=== PATIENT | female | born 1945 | race Caucasian/White ===

== ENCOUNTER 2024-12-23 01:31 | Inpatient (IN) ==
[2024-12-23] MEDS: IPRATROPIUM/ALBUTEROL 3 ML AMPUL.NEB NEB ONE (01:37)
[2024-12-23] MEDS: MAGNESIUM SULFATE 2 GM/50 ML BAG IV ONE (01:47)
[2024-12-23] MEDS: methylPREDNISolone SOD SUCC 125 MG/2 ML VIAL IV ONE (01:47)
[2024-12-23 02:07] LABS: Basophils # (Auto) 0.07 K/mcL (0.00-0.30); Basophils % (Auto) 0.5 % (0.0-2.0); Eosinophils # (Auto) 0.66 K/mcL (0.00-0.70); Eosinophils % (Auto) 5.2 % (0.0-7.0); Hematocrit 43.4 % (34.1-44.9); Hemoglobin 14.3 g/dL (11.2-15.7); Lymphocytes # (Auto) 1.89 K/mcL (1.50-4.80); Lymphocytes % (Auto) 14.8 % (15.5-49.0); Mean Cell Volume 93.3 fL (80.0-100.0); Mean Corpuscular HGB Conc 32.9 g/dL (31.0-36.0); Mean Platelet Volume 9.6 fL (8.8-12.5); Monocytes % (Auto) 9.4 % (1.0-12.0); Neutrophils % (Auto) 69.9 % (38.0-78.0); Platelet Count 329 K/mcL (140-440); RBC 4.65 M/mcL (3.59-5.38); Red Cell Distribution Width 13.7 % (11.5-14.5); WBC 12.7 K/mcL (4.5-11.0)
[2024-12-23 02:33] LABS: Blood Urea Nitrogen 10 mg/dL (8-23); Carbon Dioxide 28 mmol/L (22-30); Chloride 103 mmol/L (96-108); Glomerular Filtration Rate 87; Glucose 116 mg/dL (70-105); Potassium 3.6 mmol/L (3.3-5.1); Sodium 144 mmol/L (133-145)
[2024-12-23] MEDS ORDERED: POTASSIUM CHLORIDE 20 MEQ TABLET PO PRN ×2 (08:49)
[2024-12-23] MEDS ORDERED: ONDANSETRON 4 MG/2 ML VIAL IV PRN (08:49)
[2024-12-23] MEDS ORDERED: METOCLOPRAMIDE 10 MG/2 ML VIAL IV PRN (08:49)
[2024-12-23] MEDS ORDERED: ACETAMINOPHEN 325 MG TABLET PO PRN (08:49)
[2024-12-23] MEDS ORDERED: POTASSIUM CHLORIDE 40 MEQ in DEXTROSE 5% IN WATER 500 ML IV PRN (08:49)
[2024-12-23] MEDS ORDERED: MAGNESIUM SULFATE 2 GM/50 ML BAG IV PRN (08:49)
[2024-12-23] MEDS ORDERED: POLYETHYLENE GLYCOL 3350 17 GM PACKET PO PRN (08:49)
[2024-12-23] MEDS ORDERED: SENNOSIDES 1 TABLET PO PRN (08:49)
[2024-12-23] MEDS: PREGABALIN 25 MG CAPSULE PO SCH (09:17)
[2024-12-23] MEDS: APIXABAN 5 MG TABLET PO SCH (09:17)
[2024-12-23] MEDS: METOPROLOL SUCCINATE 50 MG TAB.XL.24H PO SCH (09:17)
[2024-12-23] MEDS: BACLOFEN 10 MG TABLET PO SCH (09:17)
[2024-12-23] MEDS: DOCUSATE SODIUM 100 MG CAPSULE PO SCH (09:17)
[2024-12-23] MEDS: BUDESONIDE 0.5 MG/2 ML AMPUL.NEB NEB SCH (09:20)
[2024-12-23] MEDS: IPRATROPIUM/ALBUTEROL 3 ML AMPUL.NEB NEB PRN (09:20)
[2024-12-23] MEDS: IPRATROPIUM/ALBUTEROL 3 ML AMPUL.NEB NEB SCH (13:20)
[2024-12-23] MEDS: methylPREDNISolone SOD SUCC 125 MG/2 ML VIAL IV SCH (13:33)
[2024-12-23] MEDS: 0.9 % SODIUM CHLORIDE 10 ML SYRINGE IV SCH (13:34)
[2024-12-23] MEDS: OMEPRAZOLE 20 MG CAPSULE PO SCH (21:09)
[2024-12-23] MEDS: amLODIPine 5 MG TABLET PO SCH (21:09)
[2024-12-23] MEDS: ATORVASTATIN 40 MG TABLET PO SCH (21:09)
[2024-12-24 06:05] LABS: Basophils # (Auto) 0.01 K/mcL (0.00-0.30); Basophils % (Auto) 0.1 % (0.0-2.0); Eosinophils # (Auto) 0 K/mcL (0.00-0.70); Eosinophils % (Auto) 0 % (0.0-7.0); Hematocrit 38.3 % (34.1-44.9); Hemoglobin 12.6 g/dL (11.2-15.7); Lymphocytes # (Auto) 1.04 K/mcL (1.50-4.80); Lymphocytes % (Auto) 5.3 % (15.5-49.0); Mean Cell Volume 93.6 fL (80.0-100.0); Mean Corpuscular HGB Conc 32.9 g/dL (31.0-36.0); Mean Platelet Volume 9.6 fL (8.8-12.5); Monocytes # (Auto) 0.38 K/mcL (0.10-0.90); Monocytes % (Auto) 1.9 % (1.0-12.0); Neutrophils % (Auto) 92.3 % (38.0-78.0); Platelet Count 297 K/mcL (140-440); RBC 4.09 M/mcL (3.59-5.38); Red Cell Distribution Width 13.7 % (11.5-14.5); WBC 19.8 K/mcL (4.5-11.0)
[2024-12-24 06:18] LABS: ALT/SGPT 13 U/L (<40); AST/SGOT 15 U/L (<32); Albumin 3.9 gm/dL (3.2-5.2); Albumin/Globulin Ratio 1.6 (1.0-2.3); Alkaline Phosphatase 69 U/L (39-117); Bilirubin,Direct < 0.2 mg/dL (0-0.3); Bilirubin,Total < 0.2 mg/dL (0.1-1.0); Blood Urea Nitrogen 15 mg/dL (8-23); Calcium 9.7 mg/dL (8.6-10.4); Carbon Dioxide 25 mmol/L (22-30); Chloride 104 mmol/L (96-108); Globulin 2.4 gm/dL (2.2-3.7); Glomerular Filtration Rate 92; Glucose 163 mg/dL (70-105); Lactate Dehydrogenase 139 U/L (135-225); Phosphorous 2.6 mg/dL (2.5-4.5); Potassium 3.9 mmol/L (3.3-5.1); Sodium 139 mmol/L (133-145); Triglycerides 45 mg/dL (<150); Uric Acid 2.5 mg/dL (2.5-8.0)
[2024-12-24] MEDS: AZITHROMYCIN 500 MG in 0.9 % SODIUM CHLORIDE 250 ML IV SCH (11:30)
[2024-12-24] MEDS: methylPREDNISolone SOD SUCC 40 MG/ML VIAL IV SCH (13:10)
[2024-12-25 12:51] VITALS: TEMP 97.7; O2SAT 92
== END 2024-12-25 12:50 | disposition home or self-care (01) | DRG 191 ==
LOC: ED 01:31 → MEDSUR 07:58
PROVIDERS: ADMIT Internal Medicine; ATTEND Internal Medicine